=== PATIENT | female | born 1975 | race Caucasian/White ===

== ENCOUNTER → 2016-10-18 | Outpatient (CLI) | payer OTHER ==
--- OUTSIDE RECORDS SUMMARY | 2016-10-18 11:54 | XMS REPORT | Continuity of Care Document ---
Author Author [facility] Organization [facility] Address Unknown Phone Unavailable Care Team Providers Care Recreation Superintendent Name Role Phone PCP Unavailable Source Comments Some departments are not documenting in the electronic medical record. If you do not see the information that you expected, contact Release of Information in the Health Information Management department at [phone] for further assistance in locating additional records.[facility] Active Allergies and Adverse Reactions Not on File Current Medications Not on file Active Problems Not on file Social History Tobacco Use Types Packs/Day Years Used Date Never Assessed Plan of Care Health Maintenance Due Date Last Done Comments Physical (Comprehensive) 1984 Exam Pertussis Vaccine 1988 Tetanus Vaccine 1994 Cervical Cancer Screening 1998 Influenza Vaccine 04/11/2016 Results from Last 3 Months Not on file
== END ==
LOC: CARD 11:49
PROVIDERS: ATTEND Internal Medicine Cardiovascular Disease
DX: I49.3 Ventricular premature depolarization (principal); R42 Dizziness and giddiness; E66.09 Other obesity due to excess calories
CPT/HCPCS: 93225; 93226

== ENCOUNTER → 2016-11-05 | Outpatient (CLI) | payer OTHER ==
--- NOTE | 2016-11-06 10:06 | ECHOCARDIOGRAPHY REPORT ---
PROCEDURE PHYSICIAN: KASEY TABOR DATE OF PROCEDURE: 11/05/2016 TWO DIMENSIONAL ECHOCARDIOGRAM REPORT PRIMARY PHYSICIAN: OTHER PHYSICIAN: REFERRING PHYSICIAN: ORDERING PHYSICIAN: INDICATION FOR THE PROCEDURE: Premature ventricular contractions, dizziness. MEASUREMENTS DERIVED VALUES LV DIAMETER (LAX) NORMALS NORMALS Diastolic 5.2 (3.6-5.2) Eject. Fract. (60%+/-6%) Systolic (2.3-3.9) Diastolic Vol. % Shortening (0.22-0.42) Systolic Vol. Aortic Root 2.7 IVS THICKNESS Diastolic 1. (0.6-1.1) LVPW THICKNESS Diastolic 1. (0.6-1.1) LA DIAMETER Systolic 3.5 (2.1-3.7) DESCRIPTION: Two-dimensional echocardiography showed normal global left ventricular systolic function without any distinct regional wall motion. Left ventricular ejection fraction of approximately 60%. Aortic, mitral and tricuspid valve leaflets show good leaflet excursion. The aortic valve appears to be trileaflet. Doppler imaging did not show any significant valvular stenosis. There appears to be trivial, mitral and tricuspid regurgitation. Pulmonary artery systolic pressure is estimated to be approximately 15 to 20 mmHg. There is no evidence of intracardiac shunt on this transthoracic echocardiographic study. CONCLUSIONS: 1. Normal global left ventricular systolic function with an ejection fraction of approximately 60%. 2. Trivial, mitral and tricuspid regurgitation. 3. No evidence of any significant valvular stenosis. 4. Pulmonary artery systolic pressure is estimated to be within normal limits. Job ID: [id number] Dictated Date: 11/05/2016 15:13:46 Wafer Mounter Date: 11/06/2016 10:01:00 / cathy
--- NOTE | 2016-11-06 12:02 | STRESS TEST ---
PROCEDURE PHYSICIAN: KASEY ORDOÑEZ EXERCISE STRESS ECHOCARDIOGRAPHY: DATE OF PROCEDURE: 11/05/2016 ORDERING PHYSICIAN: Dr. Ordoñez PRIMARY PHYSICIAN: Dr. Eddy CLINICAL DIAGNOSIS: Premature ventricular contractions, dizziness. Baseline echocardiography showed normal global left ventricular systolic function without distinct regional wall motion abnormality. Exercise was carried out on a treadmill. Thaddeus protocol was employed. At rest, she had occasional premature ventricular contractions. With exercise, no premature ventricular contractions were seen. There was no significant arrhythmia. Heart rate and blood pressure response to exercise were normal. Exercise was stopped on account of fatigue. She exercised for a total of 10 minutes and 24 seconds and attained 12.8 METs of workload. At peak exercise, there is some baseline artifact but there does not appear to be significant exercised induced depression. Exercise was repeated immediately post exercise. It shows normal augmentation of wall motion and ejection fraction. CONCLUSION: 1. No evidence of any exercise-induced myocardial ischemia on this study. 2. No evidence of myocardial infarction this study. 3. Left ventricular ejection fraction at baseline is approximately 60%. Job ID: [id number] Dictated Date: 11/05/2016 15:16:00 Micro Paleontologist Date: 11/06/2016 11:55:27 / cathy
== END ==
LOC: CARD 12:22
PROVIDERS: ATTEND Internal Medicine Cardiovascular Disease
DX: I49.3 Ventricular premature depolarization (principal); R42 Dizziness and giddiness; E66.09 Other obesity due to excess calories
CPT/HCPCS: 93306; 93351

== ENCOUNTER → 2018-08-18 | Outpatient (CLI) | payer BC ==
[2018-08-18 10:33] LABS: BASOPHILS % (AUTO) 0 % (0-10); EOSINOPHILS # (AUTO) 0.1 10^3/uL (0.0-0.3); EOSINOPHILS % (AUTO) 1 % (0-10); HEMATOCRIT 42 % (35-52); HEMOGLOBIN 14.7 G/DL (11.5-16.0); LYMPHOCYTES # (AUTO) 1.3 X 10^3 (1.0-4.0); LYMPHOCYTES % (AUTO) 27 % (12-44); MEAN CORPUSCULAR HEMOGLOBIN 32 PG (25-34); MEAN CORPUSCULAR HGB CONC 35 G/DL (32-36); MEAN CORPUSCULAR VOLUME 91 FL (80-99); MEAN PLATELET VOLUME 9.4 FL (7.4-10.4); MONOCYTES # (AUTO) 0.2 X 10^3 (0.0-1.0); MONOCYTES % (AUTO) 5 % (0-12); NEUTROPHILS # (AUTO) 3.3 X 10^3 (1.8-7.8); NEUTROPHILS % (AUTO) 67 % (42-75); PLATELET COUNT 214 10^3/uL (130-400); RED BLOOD COUNT 4.64 10^6/uL (4.35-5.85); RED CELL DISTRIBUTION WIDTH 12.4 % (10.0-14.5); WHITE BLOOD COUNT 4.9 10^3/uL (4.3-11.0)
--- NOTE | 2018-08-18 14:20 | Diagnostic Imaging Report ---
INDICATION: ASTHMA, SEASONAL ALLERGY, DYSPNEA COMPARISON: None. FINDINGS: Frontal and lateral views of the chest demonstrate normal heart size and pulmonary vascularity. The lungs are clear. There are no signs of infiltrate, pleural effusions or pneumothoraces. The visualized osseous structures show no acute abnormalities. IMPRESSION: 1. No acute process. No signs of infiltrates, effusions or pneumothoraces. Dictated by: Dictated on workstation # [id number]
[2018-08-19 05:25] LABS: ALTERNARIA MOLD RAST <0.35 kU/L (<0.35); RAGWEED RAST <0.35 kU/L (<0.35)
== END ==
LOC: RAD 10:17
PROVIDERS: ATTEND Nurse Practitioner Family
DX: J45.909 Unspecified asthma, uncomplicated (principal)
CPT/HCPCS: 36415; 71046; 82785; 85025; 86003

== ENCOUNTER → 2021-03-14 | Outpatient (CLI) | payer BC ==
--- NOTE | 2021-03-14 12:11 | Diagnostic Imaging Report ---
INDICATION: Routine screening. No prior mammograms are available for comparison. This a baseline study. 2-D and 3-D bilateral screening mammography was performed with CAD. Scattered fibroglandular densities are identified bilaterally. No mass or malignant-appearing microcalcifications are seen. Axillae are unremarkable. IMPRESSION: BI-RADS Category 1 No mammographic features suspicious for malignancy are identified. ACR BI-RADS Category 1: Negative. Result letter will be mailed to the patient. Note: At least 10% of breast cancer is not imaged by mammography. Dictated by: Dictated on workstation # [id number]
== END ==
LOC: RAD 10:00
PROVIDERS: ATTEND Nurse Practitioner Family
DX: Z12.31 Encounter for screening mammogram for malignant neoplasm of breast (principal)
CPT/HCPCS: 77063; 77067

== ENCOUNTER → 2022-01-08 | Outpatient (RCR) | payer BC | END | disposition home or self-care (01) | PROVIDERS: ATTEND Nurse Practitioner Family | DX: M25.561 Pain in right knee (principal); J45.909 Unspecified asthma, uncomplicated; K21.9 Gastro-esophageal reflux disease without esophagitis | CPT/HCPCS: 97161; G0283 ==

== ENCOUNTER 2022-01-31 15:47 | Outpatient (RCR) | payer BC | END 2022-02-07 | disposition home or self-care (01) | PROVIDERS: ATTEND Nurse Practitioner Family | DX: M25.561 Pain in right knee (principal); K21.9 Gastro-esophageal reflux disease without esophagitis; M25.461 Effusion, right knee; M62.81 Muscle weakness (generalized); E66.8 Other obesity; J30.89 Other allergic rhinitis; J45.998 Other asthma | CPT/HCPCS: 97110; G0283 ==

== ENCOUNTER → 2023-03-07 | Outpatient (CLI) | payer BC ==
--- NOTE | 2023-03-07 16:47 | Diagnostic Imaging Report ---
PROCEDURE: Pelvic complete, transabdominal and transvaginal sonogram. Limited pelvic doppler. TECHNIQUE: Multiple real-time grayscale images were obtained of the pelvis in various projections transabdominally and transvaginally. Limited pelvic duplex images were obtained. HISTORY: Pelvic pain COMPARISON: None available. FINDINGS: Uterus: The uterus is anteverted and measures 8.7 x 4.3 x 6.1 cm. The myometrium is homogeneous without fibroids. A nabothian cyst is present. Endometrium: The endometrium is normal in thickness and measures 0.8 cm. There is no fluid within the endometrial cavity. Adnexa: There is a 3.1 cm unilocular anechoic right ovarian cyst. The left ovary is nonvisualized secondary to overlying bowel gas and patient intolerance. The right ovary measures 3.7 x 3.1 x 3.0 cm. Other: There is no free fluid within the pelvis. IMPRESSION: 1. Unremarkable pelvic ultrasound. 2. Simple appearing 3.1 cm right adnexal cyst which requires no specific followup. 3. Nonvisualized left ovary. Dictated by: Dictated on workstation # [id number]
== END ==
LOC: RAD 13:00
PROVIDERS: ATTEND Nurse Practitioner Family
DX: Z76.0 Encounter for issue of repeat prescription (principal); N83.201 Unspecified ovarian cyst, right side; J00 Acute nasopharyngitis [common cold]; S67.02XD Crushing injury of left thumb, subsequent encounter; F41.1 Generalized anxiety disorder; Z72.3 Lack of physical exercise; M79.18 Myalgia, other site; S62.522D Displaced fracture of distal phalanx of left thumb, subsequent encounter for fracture with routine healing; X58.XXXD Exposure to other specified factors, subsequent encounter
CPT/HCPCS: 76830; 76856